=== PATIENT | female | born 1980 | race Caucasian/White ===

== ENCOUNTER 2021-06-25 00:04 | Day surgery (SDC) | payer BC, SELFPAY ==
[2021-06-22 18:36] VITALS: BMI 25.6
--- NOTE | 2021-06-22 18:39 | SUR.PREOP ---
Report to the Outpatient Waiting Room, entrance under the green pavilion located off [facility], at time ___0600__ on date 06/25/21___. OR Time: . - You and your visitor will be asked a series of questions to screen for COVID 19 for your protection. - A mask is required within the hospital. - Only one visitor is allowed at this time. Patient visitors will be guided where to wait when not with patient. Preoperative COVID Testing Requirements: No COVID Test needed if: (proof is required; if not received patient will have Rapid Test prior to entry) - Patient has received COVID Vaccine at least 14 days prior to procedure date or - Patient has positive COVID test result within last 90 days of surgery date. COVID Test needed if above criteria is not met If not COVID vaccinated a COVID test must be conducted within 72 hours of surgery and patient is asked to isolate self from time of testing until procedure. You will go to the [facility] Testing Site for your COVID testing. The [facility] Testing site is located at the corner of [address] from [facility]. You will only be called if COVID results are positive and your surgeon may reschedule your elective surgery date. Patients may have clear liquids (water, carbonated beverages, clear teas, apple juice) until 3 hours prior to surgery with a maximum of 20 ounces. - No food from midnight until time of surgery - Infants may have breast milk until 4 hours before surgery, infant formula 6 hours prior to surgery. - Children will be allowed to drink immediately following surgery. If applicable, please bring a bottle or sippy cup to assist with drinking. Juice, water, soda, and popsicles are readily available. For infants on formula, please bring formula the day of surgery. Pacifiers are allowed. Take the following medications with a SIP of water the morning of surgery: ___THYROID MEDICATION Medications to discontinue per physician VITAMINS AND SUPPLEMENTS 3 DAYS PRIOR Date to take last dose Please no make-up, nail khmer, hairspray, perfume, deodorant, or body powder the day of surgery. No jewelry (including any body piercings) or valuables the day of surgery, leave them at home. Please take a shower or bath the night before, or the morning of, surgery with an antibacterial soap. Wear comfortable, loose fitting clothing. Children are encouraged to wear pajamas. - Jewelry must be removed prior to entering the operating room. Rings and piercings that are not removed may be cut off. - The hospital will not accept responsibility for valuables. - Please leave all valuables, including medications, at home the day of surgery. If you are going home after surgery, a licensed funeral car driver must drive you home. - NO public transportation without another adult. - We recommend that an adult stay with you for 24 hours following discharge. - We also recommend that you do not drive, make important decision, drink alcoholic beverages, or take any drugs that were not prescribed by your health care provider for at least 24 hours after your discharge time. For Pediatric surgeries, we recommend two adults accompany the child home (only one inside the building at this time). Follow any additional instructions given to you from your surgeon. Telephone instructions given to __PATIENT and asked if any additional questions and then verbalized understanding. Patient advised to call surgeon office or pre surgery nurse liaison [phone] if any additional questions.
--- NOTE | 2021-06-24 15:54 | P.PNAN_ITS ---
Anes - Initial Pre Proc Eval Procedure: Operation Date: 06/25/21 07:30 Proposed Procedures p Bilateral Breast Reduction - Lavell Valero MD Date/Time: 06/24/21 15:54 Surgeon: Lavell Valero MD Pre Op Diagnosis: macromastia Patient Data Age: 41 Gender: F Height: 1.57 m Weight: 63.5 kg Allergies Allergy/AdvReac Type Severity Reaction Status Date / Time No Known Allergies Allergy Verified 06/25/21 06:51 Home Medications Medication Instructions Recorded Confirmed Type calcium phos,dibas-vitamin D3 77 - 400 tablet PO DAILY 06/22/21 06/25/21 History [Vitamin D (with calcium)] galcanezumab-gnlm [Emgality Pen] 120 mg SUBCUT PRN 06/22/21 06/25/21 History levothyroxine [Tirosint] 125 mcg PO DAILY 06/22/21 06/25/21 History magnesium 1 tablet PO DAILY 06/22/21 06/25/21 History mecobalamin (vitamin B12) [B12 1,000 mcg PO DAILY 06/22/21 06/25/21 History Active] naltrexone 50 mg PO DAILY 06/22/21 06/25/21 History ubrogepant [Ubrelvy] 50 mg PO DAILY 06/22/21 06/25/21 History hydrocodone 5 mg-acetaminophen 325 1 tablet PO Q6H PRN #30 tablet 06/24/21 06/25/21 Rx mg tablet ondansetron 4 mg disintegrating 4 mg PO Q8H #28 tablet 06/24/21 06/25/21 Rx tablet Patient hx anesthesia problems: none Family hx anesthesia problems: none Results Review: All pre-operative results and documents have been reviewed as part of the pre-operative evaluation. [facility] Past Medical History Medical History (Updated 06/24/21 @ 15:55 by Rene Meyer MD) Anxiety History of endometriosis removal 07/2018 Hypothyroidism Macromastia Social History Social History (Updated 01/07/21 @ 08:52 by Gabriela Paige RN) Smoking status: Never smoker Alcohol intake: never Substance use: never Substance use type: does not use Living arrangements: with family Spiritual care concerns: No Anes - Eval Final PreProcedure Day of Procedure 06/24/21 15:54 Patient weight: normal Heart: regular rate and rhythm Lungs: clear to auscultation and normal air movement Airway: Mallampati scale class II Neurological: alert and oriented Last oral intake: >/= 8 hours ASA classification: II Emergent: no Anesthetic plan: proceed Anesthesia type and monitoring: general LMA Results Review: All pre-operative results and documents have been reviewed as part of the pre-operative evaluation. Informed Consent: The patient's anesthetic plan and its attendant risks and benefits were discussed with the patient/family/POA. Questions were solicited and answers provided to the satisfaction of the patient/family/POA.
[2021-06-25] VITALS (12 sets, daily range): BP systolic 87–120; BP diastolic 54–71; PULSE 68–88; RESP 12–20; TEMP 36.3–36.6; O2SAT 100
[2021-06-25] MEDS: LACTATED RINGERS 1,000 ML 30 ML IV CONT ×2 (06:45→10:00)
--- NOTE | 2021-06-25 07:00 | WPDHPUPDATE1 ---
History and Physical Update Update Date/Time: 06/25/21 07:00 History and Physical has been reviewed, including an updated exam of the patient. There are NO changes in the patient's condition. Risks, benefits, and alternatives have been discussed and questions answered. Patient agrees to proceed with procedure.
[2021-06-25 07:01] LABS: Urine Cotinine NEGATIVE
--- NOTE | 2021-06-25 07:14 | P.OP_ITS ---
Procedure Note - Detailed Date of Procedure 06/25/21 Pre-op Diagnosis macromastia Post-op Diagnosis same Procedure Performed Bilateral Reduction Mammaplasty Surgeon Lavell Valero MD Anesthesia general Findings Inverted T Superior medial pedicle Tissue removed: Right - 547.9 grams Left - 641.7 grams Description of Procedure She is here today for bilateral breast reduction. Previously and again today the risks, benefits, alternatives were discussed in extensive detail. I wanted her to be very realistic about the risks involved as well as expectations. We discussed aftercare and what to monitor for. She understands we can never guarantee final breast size and there will always be asymmetry. I was very upfront and honest about the risks of sensation change and even nipple loss (). Made sure answered all of her questions to her satisfaction today and consent was obtained. She was marked in the preoperative holding area with their verification. The patient was taken to the operating room placed supine on the operating table. Anesthesia was provided by anesthesiology. She was prepped and draped in a standard sterile fashion. A surgical time-out was taken. Stab incisions were made and I tumessed with a tumescent solution. I marked out the nipple-areolar complex at 42 mm. I then de-epithelialized the pedicle. The pedicle was well left well more than 2 cm in thickness. I then removed the inferior portion of the breast as well as the central keel to get shape based on preoperative planning. At this point copiously irrigated with saline solution and verified a strict hemostasis. I reapproximated the pillars using a 2-0 PDS. I tailor tacked the breast into place with salvador. She was placed in a sitting position. I verified the nipple-areolar complex position based on preoperative markings, intraoperative measurements, and observation which were in full agreement. This nipple-areolar complex was marked at 42 mm in size. I then placed supine and de-epithelialized this. Nipple-areolar complex was inset with 3-0 Monocryl. I closed IMF deep with 1 strattafix. I closed the vertical incision with 3-0 Monocryl in the IMF with 3- 0 stratafix. Then everything was closed using a running subcuticular 4-0 Monocryl followed by Steri-Strips. A dressing was placed followed by surgical bra. Patient was awoke and taken to PACU without difficulty. All instrument sponge counts were correct at the end of the case. Estimated Blood Loss 50 Drains No Packing No Pathology yes (bilateral breast tissue) Complications No immediate complications Condition stable Disposition PACU
[2021-06-25] MEDS: ceFAZolin 2 GM/D5W 50 ML 2 GM/50 ML BAG IVPB (07:30)
[2021-06-25] MEDS: TRANEXAMIC ACID 1,000MG/ISO100 1,000 MG/100 ML BAG 200 MG IVPB (07:40)
[2021-06-25] MEDS: LACTATED RINGERS IRRIG 1,000 ML, LIDOCAINE HCL 1% LOCAL INJ 50 ML, EPINEPHrine HCL INJ ... INFILTRATE (08:00)
[2021-06-25] MEDS: fentaNYL CITRATE INJ (*CRX) 100 MCG/2 ML VIAL 25 MCG IV PUSH ×8 (10:24→11:15)
--- NOTE | 2021-06-25 11:33 | SUR.PHASEI ---
PT RESTING QUIETLY. AWAKENS SELF. STATES PAIN 5/10 RT>LT. READY TO SIT IN RECLINER AND HAVE FLUIDS PO.
[2021-06-25] MEDS: oxyCODONE HCL (*CRX) 5 MG TAB IR PO (12:16)
== END 2021-06-25 12:51 | disposition home or self-care (01) ==
PROVIDERS: PCP Internal Medicine; Visit Provider Surgery Plastic and Reconstructive Surgery
PROC: 0HBV0ZZ Excision of Bilateral Breast, Open Approach (ICD-10-PCS; CPT 19318; principal; 2021-06-25 07:30)
DX: N62 Hypertrophy of breast (principal); M54.9 Dorsalgia, unspecified; M54.2 Cervicalgia; M25.511 Pain in right shoulder; M25.512 Pain in left shoulder; L98.9 Disorder of the skin and subcutaneous tissue, unspecified; N64.4 Mastodynia; E03.9 Hypothyroidism, unspecified; F41.9 Anxiety disorder, unspecified
CPT/HCPCS: 19318; 80307; 88305; A9270; J0171; J0690; J1100; J1200; J2250; J2405; J2704; J3010; J7120

== ENCOUNTER 2022-10-18 01:51 | Day surgery (SDC) | payer OTHER, SELFPAY ==
[2022-10-11 11:11] VITALS: BMI 25.6
--- NOTE | 2022-10-11 11:16 | PC.NURSE ---
Report to the Outpatient Waiting Room, entrance under the green pavilion located off [facility], at time 0930 on date 10/18/22. Planned Procedure Time: 1130. Time changes happen often and if your time is changed the preop area will call you the afternoon before. - You and your visitor will be asked to self-screen and do not enter if you have any COVID symptoms. - A mask is optional within the hospital at this time. Patients may have clear liquids (water, carbonated beverages, clear teas, apple juice) until 3 hours prior to surgery with a maximum of 20 ounces. - No food from midnight until time of surgery Take the following medications with a SIP of water the morning of surgery: THYROID DO NOT STOP ANY OF YOUR OTHER PRESCRIPTION MEDICATIONS PRIOR TO SURGERY EXCEPT THE FOLLOWING Medications to discontinue per physician: VITAMINS/SUPPLEMENTS Date to take last dose: 10/14/22 Please no make-up, nail greenlandic, hairspray, perfume, deodorant, or body powder the day of surgery. No jewelry (including any body piercings) or valuables the day of surgery, leave them at home. Please take a shower or bath the night before, or the morning of, surgery with an antibacterial soap. Wear comfortable, loose fitting clothing. - Jewelry must be removed prior to entering the operating room. Rings and piercings that are not removed may be cut off. - The hospital will not accept responsibility for valuables. - Please leave all valuables, including medications, at home the day of surgery. If you are going home after surgery, a licensed food mobile driver must drive you home. - NO public transportation without another adult if you receive anesthesia. - We recommend that an adult stay with you for 24 hours following discharge. - We also recommend that you do not drive, make important decision, drink alcoholic beverages, or take any drugs that were not prescribed by your health care provider for at least 24 hours after your discharge time. Follow any additional instructions given to you from your surgeon. If you or anyone in your household have experienced Covid symptoms in the past week, please notify your surgeon or the nurse liaison at the phone number below for possible testing. Telephone instructions given to PT - MABEL CASTANEDA and asked if any additional questions and then verbalized understanding. Patient advised to call surgeon office or pre surgery nurse liaison [phone] if any additional questions.
--- NOTE | 2022-10-18 07:54 | P.HP_ITS ---
History of Present Illness History of Present Illness Consent: Risks, benefits, and alternatives have been discussed and questions answered. Patient agrees to proceed with procedure. Chief complaint: menorrhagia Narrative: Any Velázquez is a 42 year old female with heavy cycles monthly. It was recommended to proceed with D&C hysteroscopy. Risks of infection, bleeding, and perforation were reviewed. Possible pathology was also discussed. Patient voices understanding and agrees to proceed. Review of Systems Review of Systems: not repeated day of surgery; patient states no changes in status [facility] Past Medical History Medical History (Updated 10/18/22 @ 07:59 by Shauna Mcdonald MD) Anxiety History of endometriosis removal 07/2018 Hypothyroidism History of hyperthyroid now hypothyroid Macromastia (normal spontaneous vaginal delivery) x1 Surgical History Surgical History (Updated 10/18/22 @ 07:57 by Shauna Mcdonald MD) History of hysteroscopy 2019 at the same time as the laparoscopy with findings of adenomyomatosis removed with MyoSure History of laparoscopy 2019 with endometriosis diagnosed and removed Social History Social History (System 08/25/21 @ 12:37 by Faith Stuart) Smoking status: Never smoker Alcohol intake: never Substance use: never Substance use type: does not use Living arrangements: with family Spiritual care concerns: No Meds Home Medications and Allergies Home Medications Medication Instructions Recorded Confirmed Type magnesium 1 tablet PO HS 06/22/21 10/11/22 History naltrexone 50 mg tablet 4.5 mg PO DAILY 06/22/21 10/11/22 History amitriptyline 10 mg tablet 10 mg PO HS 10/11/22 10/11/22 History cholecalciferol (vitamin D3) 125 125 mcg PO DAILY 10/11/22 10/11/22 History mcg (5,000 unit) tablet (Vitamin D3) thyroid (pork) 15 mg tablet (BASIN CLEANER 15 mg PO DAILY 10/11/22 10/11/22 History Thyroid) thyroid (pork) 60 mg tablet (BASIN CLEANER 60 mg PO DAILY 10/11/22 10/11/22 History Thyroid) vitamin K2 45 mcg capsule 45 mcg PO DAILY 10/11/22 10/11/22 History Allergies Allergy/AdvReac Type Severity Reaction Status Date / Time No Known Allergies Allergy Verified 10/11/22 11:08 Exam Const: General: healthy appearing and alert Orientation/consciousness: patient oriented x3 Resp: Effort & Inspection: normal respiratory effort GI: GI Palp: Yes Soft to palpation, No Tenderness to palpation present (GI) and No Palpable mass present : External Female Exam: normal external appearance Speculum Exam - V agina: normal appearance of the vagina and normal vaginal discharge Speculum Exam - Cervix: normal appearance of the cervix Bimanual exam- vagina & uterus: uterine size normal and consistency normal Bimanual Exam- Adnexa, other: normal adnexae and No adnexal tenderness Neuro: General: patient oriented x3 Assessment and Plan Assessment and plan (1) Menorrhagia: Code(s): N92.0 - Excessive and frequent menstruation with regular cycle Status: Acute Assessment and Plan: plan to proceed with D&C hysteroscopy
--- NOTE | 2022-10-18 07:54 | WPDHPUPDATE1 ---
History and Physical Update Update Date/Time: 10/18/22 07:54 History and Physical has been reviewed, including an updated exam of the patient. There are NO changes in the patient's condition. Risks, benefits, and alternatives have been discussed and questions answered. Patient agrees to proceed with procedure.
[2022-10-18] MEDS: ACETAMINOPHEN 500 MG TABLET 1000 MG PO (10:00)
[2022-10-18] MEDS: LACTATED RINGERS 1,000 ML 30 ML IV CONT (10:15)
[2022-10-18 10:19] VITALS: BP 103/66; PULSE 64; RESP 16; TEMP 37.2; O2SAT 100
--- NOTE | 2022-10-18 10:19 | P.PNAN_ITS ---
Anes - Initial Pre Proc Eval Procedure: Operation Date: 10/18/22 11:30 Proposed Procedures p Hysteroscopy, Dilation and Curettage - Shauna Mcdonald MD Date/Time: 10/18/22 10:19 Surgeon: Shauna Mcdonald MD Pre Op Diagnosis: menorrhagia Patient Data Age: 42 Gender: F Height: 1.57 m Weight: 63.5 kg Allergies Allergy/AdvReac Type Severity Reaction Status Date / Time No Known Allergies Allergy Verified 10/18/22 10:17 Home Medications Medication Instructions Recorded Confirmed Type magnesium 1 tablet PO HS 06/22/21 10/11/22 History naltrexone 50 mg tablet 4.5 mg PO DAILY 06/22/21 10/11/22 History amitriptyline 10 mg tablet 10 mg PO HS 10/11/22 10/11/22 History cholecalciferol (vitamin D3) 125 125 mcg PO DAILY 10/11/22 10/11/22 History mcg (5,000 unit) tablet (Vitamin D3) thyroid (pork) 15 mg tablet (CHAIRMAN & CEO 15 mg PO DAILY 10/11/22 10/11/22 History Thyroid) thyroid (pork) 60 mg tablet (CHAIRMAN & CEO 60 mg PO DAILY 10/11/22 10/11/22 History Thyroid) vitamin K2 45 mcg capsule 45 mcg PO DAILY 10/11/22 10/11/22 History cephalexin 250 mg capsule 250 mg PO DAILY 10/18/22 10/18/22 History Patient hx anesthesia problems: none Family hx anesthesia problems: none Results Review: All pre-operative results and documents have been reviewed as part of the pre- operative evaluation. [facility] Past Medical History Medical History (Updated 10/18/22 @ 07:59 by Shauna Mcdonald MD) Anxiety History of endometriosis removal 07/2018 Hypothyroidism History of hyperthyroid now hypothyroid Macromastia (normal spontaneous vaginal delivery) x1 Surgical History Surgical History (Updated 10/18/22 @ 07:57 by Shauna Mcdonald MD) History of hysteroscopy 2019 at the same time as the laparoscopy with findings of adenomyomatosis removed with MyoSure History of laparoscopy 2019 with endometriosis diagnosed and removed Social History Social History (System 08/25/21 @ 12:37 by Faith Stuart) Smoking status: Never smoker Alcohol intake: never Substance use: never Substance use type: does not use Living arrangements: with family Spiritual care concerns: No Anes - Eval Final PreProcedure Day of Procedure 10/18/22 10:19 Patient weight: normal Heart: regular rate and rhythm Lungs: clear to auscultation Airway: Mallampati scale class II Neurological: alert and oriented Last oral intake: >/= 8 hours ASA classification: II Emergent: no Anesthetic plan: proceed Anesthesia type and monitoring: general GIVS and standard monitoring Results Review: All pre-operative results and documents have been reviewed as part of the pre-operative evaluation. Informed Consent: The patient's anesthetic plan and its attendant risks and benefits were discussed with the patient/family/POA. Questions were solicited and answers provided to the satisfaction of the patient/family/POA.
[2022-10-18] MEDS: LIDOCAINE HCL 1% LOCAL INJ 20 ML VIAL 10 ML INFILTRATE (11:49)
[2022-10-18] MEDS: KETOROLAC 15 MG/ML VIAL (*BKC) IV PUSH (11:50)
--- NOTE | 2022-10-18 11:56 | P.OP_ITS ---
Procedure Note - Detailed Date of Procedure 10/18/22 Pre-op Diagnosis menorrhagia Post-op Diagnosis Same Procedure Performed D&C hysteroscopy Surgeon Shauna Mcdonald MD Anesthesia MAC and Local Findings uterus sounds to 10cm appears grossly normal Description of Procedure The patient is taken to the operating room and placed under anesthesia in the dorsal lithotomy position. She was prepped and draped in usual sterile fashion. [place] speculum was placed in the vagina and the cervix grasped on the anterior lip with a tenaculum. The cervix is injected in each quadrant with 1% lidocaine. The uterus is sounded to 10cm. The diagnostic hysteroscope was placed with no abnormalities noted it is removed. The sharp curette is used to curette the endometrium until a good uterine cry was noted in all areas. A large amount of material was obtained. The instruments are removed and the patient awakened from anesthesia and taken to recovery in stable condition. Sponge, needle, and instrument counts are correct per the OR staff. Estimated Blood Loss 5 Drains No Packing No Pathology Yes ( Endometrial curettings) Complications No immediate complications Condition Stable Disposition PACU
[2022-10-18 12:00] VITALS: BP 132/89; PULSE 75; RESP 14; O2SAT 100
[2022-10-18 12:30] VITALS: BP 93/59; PULSE 49; RESP 15
[2022-10-18] MEDS: oxyCODONE HCL (*CRX) 5 MG TAB IR PO (12:36)
[2022-10-18 13:10] VITALS: BP 96/58; PULSE 57; RESP 16
== END 2022-10-18 13:28 | disposition home or self-care (01) ==
PROVIDERS: PCP Internal Medicine; Visit Provider Obstetrics & Gynecology Gynecology
PROC: 0U5B8ZZ Destruction of Endometrium, Via Natural or Artificial Opening Endoscopic (ICD-10-PCS; CPT 58563; principal; 2022-10-18 11:30)
DX: N92.0 Excessive and frequent menstruation with regular cycle (principal); E03.9 Hypothyroidism, unspecified; F41.9 Anxiety disorder, unspecified
CPT/HCPCS: 58558; 88305; A9270; J1885; J2250; J2405; J2704; J3010; J7120